=== PATIENT | male | born 1970 | race African-American/Black ===

== ENCOUNTER 2018-07-25 07:28 | Day surgery (SDC) | payer OTHER ==
[~2018-07-25] VITALS: Ht 160 cm; Wt 71.5 kg
[2018-07-25 08:23] VITALS: BP 124/83; PULSE 66; RESP 18
[2018-07-25 08:26] VITALS: Ht 160 cm; Wt 71.5 kg
[2018-07-25] MEDS ORDERED: DICYCLOMINE (08:29)
[2018-07-25] MEDS ORDERED: LOPERAMIDE (08:30)
[2018-07-25] MEDS ORDERED: FENTAnyl 50 MCG/ML VIAL ONE (09:31)
[2018-07-25] MEDS ORDERED: MIDAZOLAM 1 MG/ML 2 ML INJ ONE ×2 (09:32)
[2018-07-25 09:49] VITALS: BP 106/69; PULSE 60; RESP 18
== END 2018-07-25 14:49 | disposition home or self-care (01) ==
LOC: GIL 07:28
PROVIDERS: ATTEND Internal Medicine Gastroenterology
DX: R19.7 Diarrhea, unspecified (principal)
CPT/HCPCS: 45378; 88305; J2250; J3010; Z7610